=== PATIENT | female | born 1990 | race Two or more races ===

== ENCOUNTER 2019-03-27 19:56 | Emergency (ER) | payer SELFPAY ==
[2019-03-27] MEDS: Ondansetron 4 MG/2 ML SDV IVPUSH ONE ×2 (21:44→22:48)
[2019-03-27] MEDS: Sodium Chloride 0.9% 1,000 ML IV ONE ×2 (21:44→22:46)
[2019-03-27 22:13] LABS: BLOOD UREA NITROGEN,BUN 3 mg/dL (7.0-18.0); CARBON DIOXIDE,CO2 24.7 mmol/L (21.0-32.0); CHLORIDE,CL 99 mmol/L (98-107); GLUCOSE RANDOM 93 mg/dL (74-106); POTASSIUM,K 3.5 mmol/L (3.5-5.1); SODIUM,NA 136 mmol/L (136-145)
[2019-03-27] MEDS: ceFAZolin 1 GM in Premix Bag 1 BAG IV ONE (22:46)
--- NOTE | 2019-03-28 00:21 | EDM.PDOC ---
ED HPI GENERAL MEDICAL PROBLEM - General Chief Complaint: Gastrointestinal Problem Stated Complaint: VOMITING Time Seen by Provider: 03/27/19 22:28 Source of Information: Reports: Patient, [employer]er History Limitations: Reports: No Limitations - History of Present Illness INITIAL COMMENTS - FREE TEXT/NARRATIVE: -29year-old female presents with emergency room chief complaint of nausea vomiting flank pain. Difficulty urinating. 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: - Infectious Disease History Infectious Disease History: Reports: None - Past Surgical History Female Surgical History: Reports: Section, LEEP Social & Family History - Family History Family Medical History: Noncontributory - Tobacco Use Smoking Status *Q: Never Smoker Second Hand Smoke Exposure: No - Caffeine Use Caffeine Use: Reports: None - Recreational Drug Use Recreational Drug Use: No ED ROS GENERAL - Review of Systems Review Of Systems: See Below Constitutional: Reports: Fever HEENT: Reports: No Symptoms Respiratory: Reports: No Symptoms Cardiovascular: Reports: No Symptoms Endocrine: Reports: No Symptoms GI/Abdominal: Reports: No Symptoms : Reports: Dysuria Musculoskeletal: Reports: No Symptoms Skin: Reports: No Symptoms Neurological: Reports: No Symptoms Psychiatric: Reports: No Symptoms, Other Hematologic/Lymphatic: Reports: No Symptoms, Other Immunologic: Reports: No Symptoms ED EXAM, GI/ABD - Physical Exam Exam: See Below Exam Limited By: No Limitations General Appearance: Alert, WD/WN, No Apparent Distress Ears: Normal External Exam, Normal Canal, Hearing Grossly Normal Nose: Normal Inspection, Normal Mucosa Throat/Mouth: Normal Inspection, Normal Lips Head: Atraumatic, Normocephalic Neck: Normal Inspection, Supple, Non-Tender Respiratory/Chest: No Respiratory Distress, Lungs Clear, Normal Breath Sounds, No Accessory Muscle Use Cardiovascular: Normal Peripheral Pulses (Female) Exam: Deferred Course - Vital Signs Last Recorded V/S: Last Vital Signs Temp 98.9 F 03/27/19 20:11 Pulse 94 03/27/19 20:11 Resp 16 03/27/19 20:11 BP 116/72 03/27/19 20:11 Pulse Ox 100 03/27/19 20:11 - Orders/Labs/Meds Orders: Active Orders 24 hr Category Date Time Status CULTURE URINE [RM] Stat Lab 03/27/19 21:45 Received Labs: Laboratory Tests 03/27/19 03/27/19 03/27/19 Range/Units 21:44 21:44 21:45 WBC 5.51 (4.0-11.0) K/uL RBC 4.44 (4.30-5.90) M/uL Hgb 13.9 (12.0-16.0) g/dL Hct 41.0 (36.0-46.0) % MCV 92.3 (80.0-98.0) fL MCH 31.3 (27.0-32.0) pg MCHC 33.9 (31.0-37.0) g/dL RDW Std Deviation 47.2 (28.0-62.0) fl RDW Coeff of Gopal 14 (11.0-15.0) % Plt Count 192 (150-400) K/uL MPV 11.00 (7.40-12.00) fL Neut % (Auto) 53.9 (48.0-80.0) % Lymph % (Auto) 37.6 (16.0-40.0) % Turner % (Auto) 8.3 (0.0-15.0) % Eos % (Auto) 0.0 (0.0-7.0) % Baso % (Auto) 0.2 (0.0-1.5) % Neut # (Auto) 3.0 (1.4-5.7) K/uL Lymph # (Auto) 2.1 (0.6-2.4) K/uL Turner # (Auto) 0.5 (0.0-0.8) K/uL Eos # (Auto) 0.0 (0.0-0.7) K/uL Baso # (Auto) 0.0 (0.0-0.1) K/uL Nucleated RBC % 0.0 /100WBC Nucleated RBCs # 0 K/uL Sodium 136 (136-145) mmol/L Potassium 3.5 (3.5-5.1) mmol/L Chloride 99 (98-107) mmol/L Carbon Dioxide 24.7 (21.0-32.0) mmol/L BUN 3 L (7.0-18.0) mg/dL Creatinine 0.7 (0.6-1.0) mg/dL Est Cr Clr Drug Dosing 107.67 mL/min Estimated GFR (MDRD) > 60.0 ml/min Glucose 93 (74-106) mg/dL Calcium 9.1 (8.5-10.1) mg/dL Total Bilirubin 0.3 (0.2-1.0) mg/dL AST 128 H (15-37) IU/L ALT 99 H (14-63) IU/L Alkaline Phosphatase 73 (46-116) U/L Total Protein 9.3 H (6.4-8.2) g/dL Albumin 4.5 (3.4-5.0) g/dL Globulin 4.8 H (2.6-4.0) g/dL Albumin/Globulin Ratio 0.9 (0.9-1.6) Urine Color YELLOW Urine Appearance SLT CLOUDY Urine pH 6.5 (5.0-8.0) Ur Specific Slinger 1.010 (1.001-1.035) Urine Protein NEGATIVE (NEGATIVE) mg/dL Urine Glucose (UA) NEGATIVE (NEGATIVE) mg/dL Urine Ketones 40 H (NEGATIVE) mg/dL Urine Occult Blood TRACE-INTACT H (NEGATIVE) Urine Nitrite POSITIVE H (NEGATIVE) Urine Bilirubin NEGATIVE (NEGATIVE) Urine Urobilinogen 0.2 (<2.0) EU/dL Ur Leukocyte Esterase SMALL H (NEGATIVE) Urine RBC 2-4 (0-2/HPF) Urine WBC 12-20 (0-5/HPF) Ur Epithelial Cells MODERATE (NONE-FEW) Urine Bacteria 3+ H (NEGATIVE) Urine HCG, Qual (NEGATIVE) 03/27/19 Range/Units 21:45 WBC (4.0-11.0) K/uL RBC (4.30-5.90) M/uL Hgb (12.0-16.0) g/dL Hct (36.0-46.0) % MCV (80.0-98.0) fL MCH (27.0-32.0) pg MCHC (31.0-37.0) g/dL RDW Std Deviation (28.0-62.0) fl RDW Coeff of Gopal (11.0-15.0) % Plt Count (150-400) K/uL MPV (7.40-12.00) fL Neut % (Auto) (48.0-80.0) % Lymph % (Auto) (16.0-40.0) % Turner % (Auto) (0.0-15.0) % Eos % (Auto) (0.0-7.0) % Baso % (Auto) (0.0-1.5) % Neut # (Auto) (1.4-5.7) K/uL Lymph # (Auto) (0.6-2.4) K/uL Turner # (Auto) (0.0-0.8) K/uL Eos # (Auto) (0.0-0.7) K/uL Baso # (Auto) (0.0-0.1) K/uL Nucleated RBC % /100WBC Nucleated RBCs # K/uL Sodium (136-145) mmol/L Potassium (3.5-5.1) mmol/L Chloride (98-107) mmol/L Carbon Dioxide (21.0-32.0) mmol/L BUN (7.0-18.0) mg/dL Creatinine (0.6-1.0) mg/dL Est Cr Clr Drug Dosing mL/min Estimated GFR (MDRD) ml/min Glucose (74-106) mg/dL Calcium (8.5-10.1) mg/dL Total Bilirubin (0.2-1.0) mg/dL AST (15-37) IU/L ALT (14-63) IU/L Alkaline Phosphatase (46-116) U/L Total Protein (6.4-8.2) g/dL Albumin (3.4-5.0) g/dL Globulin (2.6-4.0) g/dL Albumin/Globulin Ratio (0.9-1.6) Urine Color Urine Appearance Urine pH (5.0-8.0) Ur Specific Slinger (1.001-1.035) Urine Protein (NEGATIVE) mg/dL Urine Glucose (UA) (NEGATIVE) mg/dL Urine Ketones (NEGATIVE) mg/dL Urine Occult Blood (NEGATIVE) Urine Nitrite (NEGATIVE) Urine Bilirubin (NEGATIVE) Urine Urobilinogen (<2.0) EU/dL Ur Leukocyte Esterase (NEGATIVE) Urine RBC (0-2/HPF) Urine WBC (0-5/HPF) Ur Epithelial Cells (NONE-FEW) Urine Bacteria (NEGATIVE) Urine HCG, Qual POSITIVE (NEGATIVE) Meds: Medications Discontinued Medications Generic Name Dose Route Start Last Admin Trade Name Mehdiq PRN Reason Stop Dose Admin Sodium Chloride 1,000 mls @ 999 mls/hr 03/27/19 21:29 03/27/19 21:44 Normal Saline IV 03/27/19 22:29 999 mls/hr .Bolus ONE Administration Cefazolin Sodium/Dextrose 1 gm 50 mls @ 100 mls/hr 03/27/19 22:17 03/27/19 22 :46 / Premix IV 03/27/19 22:46 100 mls/hr ONETIME ONE Administration Sodium Chloride 1,000 mls @ 1,000 mls/hr 03/27/19 22:32 03/27/19 22:46 Normal Saline IV 03/27/19 23:31 1,000 mls/hr .Bolus ONE Administration Ondansetron HCl 4 mg 03/27/19 21:29 03/27/19 21:44 Zofran IVPUSH 03/27/19 21:30 4 mg ONETIME ONE Administration Ondansetron HCl 4 mg 03/27/19 22:33 03/27/19 22:48 Zofran IVPUSH 03/27/19 22:34 4 mg ONETIME ONE Administration Departure - Departure Time of Disposition: 00:20 Disposition: Home, Self-Care 01 Clinical Impression: Urinary tract infection - Discharge Information Prescriptions: Cephalexin [Keflex] 500 mg PO TID #21 capsule Instructions: Urinary Tract Infection, Adult Referrals: PCP,None [Primary Care Provider] - Sepsis Event Note - Evaluation Sepsis Screening Result: No Definite Risk - Focused Exam Vital Signs: Vital Signs Temp Pulse Resp BP Pulse Ox 03/27/19 20:11 98.9 F 94 16 116/72 100 Date Exam was Performed: 03/28/19 Time Exam was Performed: 00:17 - My Orders Last 24 Hours: My Active Orders 03/27/19 21:45 CULTURE URINE [RM] Stat - Assessment/Plan Last 24 Hours: My Active Orders 03/27/19 21:45 CULTURE URINE [RM] Stat
== END 2019-03-28 00:34 | disposition home or self-care (01) ==
LOC: MW.ED 19:56
DX: O23.40 Unspecified infection of urinary tract in pregnancy, unspecified trimester (principal)
CPT/HCPCS: 80053; 81001; 81025; 85025; 87086; 87088; 87186; 87804; 96361; 96365; 96375; 96376; 99284; J0690; J2405; J7030; 99283